=== PATIENT | female | born 1990 | race Caucasian/White ===

== ENCOUNTER 2017-07-22 14:23 | Emergency (ER) | payer OTHER ==
[~2017-07-22] VITALS: Ht 172.7 cm; Wt 81.8 kg
[2017-07-22 14:24] VITALS: BP 142/95
[2017-07-22] MEDS ORDERED: DEXAMETHASONE 4 MG TABLET ONE (15:05)
[2017-07-22] MEDS ORDERED: DEXAMETHASONE 4 MG/ML, 1ML PO ONE (15:30)
== END 2017-07-22 15:28 | disposition home or self-care (01) ==
LOC: ED 15:10
DX: J02.0 Streptococcal pharyngitis (principal)
CPT/HCPCS: 99283; J1100